=== PATIENT | male | born 1980 | race Caucasian/White ===

== ENCOUNTER 2016-08-30 18:50 | Emergency (ER) | payer OTHER ==
[2016-08-30 18:53] VITALS: BP 134/79; PULSE 95; TEMP 98.1; BMI 29.8
--- NOTE | 2016-08-30 20:41 | PDOC ---
History of Present Illness - General History Source: Patient <Kenton Acosta - Last Filed: 08/31/16 01:22> - General History Source: Patient Exam Limitations: No Limitations - History of Present Illness Initial Comments: 08/30/16 20:52 The patient is a 36 year old male with no significant past medical history who presents to the ED for 4 days of right upper quadrant pain. Patient describes his pain as sharp in nature and 10/10 with decreased appetite. Last meal was earlier today. States he is unable to take a deep breath secondary to the pain. Denies nausea, vomiting, or diarrhea. Patient states he never experienced similar symptoms in the past. The patient denies fever, chills, diaphoresis, cough, SOB, chest pain, and palpitations. Allergies: NKDA Social History: Current smoker (21 pack year hx), etoh abuse, past hx of IV heroin abuse and steroid use Past Surgical History: left inguinal hernia repair (2007), tonsillectomy as child PCP: None reported <Shannan Davis - Last Filed: 08/31/16 01:44> - General Chief Complaint: Nausea/Vomiting Stated Complaint: NAUSEA/VOMITING Time Seen by Provider: 08/30/16 20:37 Past History - Past Medical History Anemia: No Asthma: No Cancer: No Cardiac Disorders: No CVA: No COPD: No CHF: No DVT: No Dementia: No Diabetes: No Dialysis: No GI Disorders: Yes (acid reflux) Disorders: No HTN: No Hypercholesterolemia: No Kidney Stones: No Liver Disease: No Suicide Attempt (Hx): No Seizures: No Thyroid Disease: No - Surgical History Abdominal Surgery: Yes (left inguinal hernia repair 2007) Appendectomy: No Cardiac Surgery: No Cholecystectomy: No Lung Surgery: No Neurologic Surgery: No Orthopedic Surgery: No - Reproductive History Testicular Surgery: No - Immunization History Immunization Up to Date: Yes - Psycho/Social/Smoking Cessation Hx Anxiety: No Suicidal Ideation: No Smoking Status: Yes Smoking History: Current every day smoker Have you smoked in the past 12 months: Yes Number of Cigarettes Smoked Daily: 20 Cigars Per Day: 0 Information on smoking cessation initiated: Yes 'Breaking Loose' booklet given: 08/30/16 Hx Alcohol Use: No Drug/Substance Use Hx: No Substance Use Type: None Hx Substance Use Treatment: No <Kenton Acosta - Last Filed: 08/31/16 01:22> <Shannan Davis - Last Filed: 08/31/16 01:44> - Past Medical History Allergies/Adverse Reactions: Allergies Allergy/AdvReac Type Severity Reaction Status Date / Time No Known Allergies Allergy Verified 08/30/16 18:53 Home Medications: Ambulatory Orders Pantoprazole Sodium [Protonix] 40 mg PO DAILY #30 tablet. 08/31/16 Review of Systems - Review of Systems Able to Perform ROS?: Yes Comments:: 08/30/16 20:52 CONSTITUTIONAL: +decreased appetite Absent: fever, no chills, no fatigue EYES: Absent: visual changes ENT: Absent: ear pain, no sore throat CARDIOVASCULAR: Absent: chest pain, no palpitations RESPIRATORY: Absent: cough, no SOB GI: +right upper quadrant pain Absent: no nausea, no vomiting, no constipation, no diarrhea GENITOURINARY: Absent: dysuria, no frequency, no hematuria MUSCULOSKELETAL: Absent: back pain, no arthralgia, no myalgia SKIN: Absent: rash NEURO: Absent: headache <SusanJuanShannan - Last Filed: 08/31/16 01:44> *Physical Exam - Vital Signs Last Vital Signs Temp Pulse Resp BP Pulse Ox 98.1 F 95 H 18 134/79 97 08/30/16 18:51 08/30/16 18:51 08/30/16 18:51 08/30/16 18:51 08/30/16 18:51 <Kenton Acosta - Last Filed: 08/31/16 01:22> - Vital Signs Last Vital Signs Temp Pulse Resp BP Pulse Ox 98.1 F 95 H 18 134/79 97 08/30/16 18:51 08/30/16 18:51 08/30/16 18:51 08/30/16 18:51 08/30/16 18:51 - Physical Exam Comments: 08/30/16 20:53 GENERAL: Well-appearing, well-nourished. No apparent distress. HEENT: Normocephalic, atraumatic. PERRL, EOM intact. CARDIOVASCULAR: Normal S1, S2. Regular rate and rhythm. PULMONARY: Clear to auscultation bilaterally. ABDOMEN: Soft, non-distended, tenderness in the right upper quadrant. No rebound or guarding. No murphys sign. EXTREMITIES: Normal ROM in all four extremities. No gross deformities. SKIN: Warm, dry. No rash NEUROLOGICAL: No focal neurological deficits. <SusanShannan - Last Filed: 08/31/16 01:44> ED Treatment Course - LABORATORY CBC & Chemistry Diagram: 08/30/16 21:00 08/30/16 21:00 <Kenton Acosta - Last Filed: 08/31/16 01:22> - LABORATORY CBC & Chemistry Diagram: 08/30/16 21:00 08/30/16 21:00 - RADIOLOGY Radiograph Interpretation: 08/31/16 01:43 Exam: Contrast-enhanced CT abdomen and pelvis Reviewed by Imaging saturation diver: Findings: Subsegmental dependent atelectatic changes are noted in the lung bases. The liver, spleen and pancreas all have a normal appearance. The gallbladder is contracted. The adrenal glands are unremarkable. The kidneys have a normal appearance and enhance symmetrically. There is no evidence of urinary tract obstruction. The gastrointestinal tract does not appear obstructed. No thickened or dilated bowel is seen. The appendix is not identified. No cecal thickening or pericecal inflammatory changes are seen. There is no mesenteric infiltration. The urinary bladder, prostate and seminal vesicles are unremarkable. No abdominal or pelvic adenopathy is seen. No lytic or blastic destructive osseous lesions are seen. Impression: No inflammatory process identified in the abdomen or pelvis. No abdominal mass, adenopathy or collection seen. No explanation seen for this patient's abdominal pain. <Shannan Davis - Last Filed: 08/31/16 01:44> Medical Decision Making - Medical Decision Making 08/31/16 01:21 Dr. Acosta: The scribe's documentation has been prepared under my direction and personally reviewed by me in its entirery. I confirm that the note above accurately reflects all work, treatment, procedures, and medical decision making performed by me. All studies return to be negative. Pt to be discharged. Rx Protonix. <Kenton Acosta - Last Filed: 08/31/16 01:22> *DC/Admit/Observation/Transfer - Discharge Dispostion Admit: No <Kenton Acosta - Last Filed: 08/31/16 01:22> - Attestations Scribe Attestion: 08/30/16 20:53 Documentation prepared by Shannan Davis, acting as biomedical analytical scientist for Kenton Acosta MD/. <Shannan Davis - Last Filed: 08/31/16 01:44> Diagnosis at time of Disposition: Abdominal pain Qualifiers: Abdominal location: right upper quadrant Qualified Code(s): R10.11 - Right upper quadrant pain - Discharge Dispostion Disposition: HOME Condition at time of disposition: Stable - Prescriptions Prescriptions: Pantoprazole Sodium [Protonix] 40 mg PO DAILY #30 tablet.dr - Referrals Referrals: Naga Cavazos DO [Staff Physician] - - Patient Instructions Printed Discharge Instructions: DI for Abdominal Pain-Adult - Post Discharge Activity Work/School Note: Back to Work
[2016-08-30] MEDS ORDERED: SODIUM CHLORIDE 1,000 ML IV STA (20:42)
[2016-08-30] MEDS ORDERED: KETOROLAC TROMETHAMINE 30 MG/1 ML VIAL IVPUSH ONE (20:42)
[2016-08-30] MEDS ORDERED: ONDANSETRON 4 MG/2 ML VIAL IVPUSH STA (20:42)
[2016-08-30] MEDS ORDERED: ONDANSETRON 4 MG/2 ML VIAL ONE (21:01)
[2016-08-30] MEDS ORDERED: KETOROLAC TROMETHAMINE 30 MG/1 ML VIAL ONE (21:01)
[2016-08-30 21:04] LABS: BASOPHIL 0.8 % (0-2.0); MCH 29.1 pg (25.7-33.7); MCHC 32.8 g/dl (32.0-35.9); MEAN CELL VOLUME 88.9 fl (80-96); MEAN PLT VOLUME 9.5 fl (7.5-11.1); NEUTROPHILS 55.2 % (42.8-82.8); PLATELET COUNT 165 K/MM3 (134-434); RDW 13.2 % (11.9-15.9); WHITE BLOOD COUNT 8.5 K/mm3 (4.0-10.0)
[2016-08-30 21:21] LABS: INR 1.05 (0.82-1.09); PROTHROMBIN TIME (PATIENT) 11.6 SEC (9.98-11.88)
[2016-08-30 21:30] LABS: ALBUMIN 4.2 g/dl (3.4-5.0); AMYLASE 29 U/L (25-115); ANION GAP 7 (8-16); BILIRUBIN,TOTAL 0.3 mg/dL (0.2-1.0); CALCIUM 9.1 mg/dL (8.5-10.1); CO2 32 mmol/L (21-32); COCKROFT - GAULT 160.1; CREATININE 0.9 mg/dL (0.7-1.3); GLUCOSE,RANDOM 112 mg/dL (74-106); MAGNESIUM 2.1 mg/dL (1.8-2.4); SGOT/AST 26 U/L (15-37); SGPT/ALT 33 U/L (12-78); TOT PROT 7.2 g/dl (6.4-8.2)
[2016-08-30 21:31] LABS: ALK PHOS 45 U/L (45-117); TROPONIN I < 0.02 ng/ml (0.00-0.05)
[2016-08-30] MEDS ORDERED: morphine CARPU-JECT 2 MG/1 ML DISP.SYRIN IVPUSH ONE (21:56)
[2016-08-30] MEDS ORDERED: morphine CARPU-JECT 2 MG/1 ML DISP.SYRIN ONE (22:05)
[2016-08-30] MEDS ORDERED: SODIUM CHLORIDE 1,000 ML IV SCH (22:30)
== END 2016-08-31 03:01 | disposition home or self-care (01) ==
LOC: JER 18:50
PROC: 3E0333Z Introduction of Anti-inflammatory into Peripheral Vein, Percutaneous Approach (ICD-10-PCS; principal; 2016-08-30)
PROC: 3E033NZ Introduction of Analgesics, Hypnotics, Sedatives into Peripheral Vein, Percutaneous Approach (ICD-10-PCS; 2016-08-30)
PROC: 3E033GC Introduction of Other Therapeutic Substance into Peripheral Vein, Percutaneous Approach (ICD-10-PCS; 2016-08-30)
PROC: 3E0337Z Introduction of Electrolytic and Water Balance Substance into Peripheral Vein, Percutaneous Approach (ICD-10-PCS; 2016-08-30)
DX: R10.11 Right upper quadrant pain (principal); F17.210 Nicotine dependence, cigarettes, uncomplicated; K21.9 Gastro-esophageal reflux disease without esophagitis
CPT/HCPCS: 36415; 74177-TC; 76705-TC; 80053; 82150; 82550; 82553; 83690; 83735; 84484; 85025; 85610; 96361; 96374; 96375; 99282-25

== ENCOUNTER 2018-04-13 19:00 | Emergency (ER) | payer OTHER ==
[2018-04-13 19:07] VITALS: BP 124/79; PULSE 98; TEMP 98.6; BMI 31.8
--- NOTE | 2018-04-13 21:02 | PDOC ---
History of Present Illness - General Chief Complaint: Edema Stated Complaint: SWOLLEN RT ARM Time Seen by Provider: 04/13/18 20:29 History Source: Patient Exam Limitations: No Limitations - History of Present Illness Initial Comments: 04/13/18 23:11 Pt is a 38 y/o M with PMH of IVDU, last used approximately 10 days ago, shot cocaine, presents to the ED with R arm pain and swelling. Pt notes that his R arm was starting to turn red around his last injection site. States that it hurts to flex his arm at the elbow. Pt was seen at an urgent care where he was given Keflex. Pt states he has taken 6 doses of Keflex and he states that he thinks the redness has gotten worse. Denies fevers, chills, weakness to the extremity, numbness and tingling to the extremity, nausea, vomiting. Past History - Travel Traveled outside of the country in the last 30 days: No Close contact w/someone who was outside of country & ill: No - Past Medical History Allergies/Adverse Reactions: Allergies Allergy/AdvReac Type Severity Reaction Status Date / Time No Known Allergies Allergy Verified 04/13/18 19:04 Home Medications: Ambulatory Orders Clindamycin [Cleocin -] 600 mg PO TID #42 capsule 04/13/18 Midazolam 04/13/18 Anemia: No Asthma: No Cancer: No Cardiac Disorders: No CVA: No COPD: No CHF: No DVT: No Dementia: No Diabetes: No Dialysis: No GI Disorders: Yes (acid reflux) Disorders: No HTN: No Hypercholesterolemia: No Kidney Stones: No Liver Disease: No Seizures: No Thyroid Disease: No - Surgical History Abdominal Surgery: Yes (left inguinal hernia repair 2007) Appendectomy: No Cardiac Surgery: No Cholecystectomy: No Lung Surgery: No Neurologic Surgery: No Orthopedic Surgery: No - Reproductive History Testicular Surgery: No - Immunization History Immunization Up to Date: Yes - Suicide/Smoking/Psychosocial Hx Smoking Status: Yes Smoking History: Current every day smoker Have you smoked in the past 12 months: Yes Number of Cigarettes Smoked Daily: 10 Cigars Per Day: 0 Information on smoking cessation initiated: No 'Breaking Loose' booklet given: 08/30/16 Hx Alcohol Use: No Drug/Substance Use Hx: Yes (COCAINE) Substance Use Type: None Hx Substance Use Treatment: No Review of Systems - Review of Systems Able to Perform ROS?: Yes Comments:: 04/13/18 22:16 CONSTITUTIONAL: Absent: fever, chills, diaphoresis, generalized weakness, malaise, loss of appetite HEENT: Absent: rhinorrhea, nasal congestion, throat pain, throat swelling, difficulty swallowing, mouth swelling, ear pain, eye pain, visual Changes CARDIOVASCULAR: Absent: chest pain, loss of consciousness, palpitations, irregular heart rate, peripheral edema RESPIRATORY: Absent: cough, shortness of breath, dyspnea with exertion, orthopnea, wheezing, stridor, hemoptysis GASTROINTESTINAL: Absent: abdominal pain, abdominal distension, nausea, vomiting, diarrhea, constipation, melena, hematochezia GENITOURINARY: Absent: dysuria, frequency, urgency, hesitancy, hematuria, flank pain, genital pain MUSCULOSKELETAL: Absent: myalgia, arthralgia, joint swelling SKIN: Present: Redness to R forearm with pain Absent: itching, pallor HEMATOLOGIC/IMMUNOLOGIC: Absent: easy bleeding, easy bruising, lymphadenopathy, frequent infections ENDOCRINE: Absent: unexplained weight gain, unexplained weight loss, heat intolerance, cold intolerance NEUROLOGIC: Absent: headache, focal weakness or paresthesias, dizziness, unsteady gait, seizure, mental status changes, bladder or bowel incontinence PSYCHIATRIC: Absent: anxiety, depression, suicidal or homicidal ideation, hallucinations. Is the patient limited [place] proficient: No *Physical Exam - Vital Signs Last Vital Signs Temp Pulse Resp BP Pulse Ox 98.6 F 98 H 18 124/79 97 04/13/18 19:05 04/13/18 19:05 04/13/18 19:05 04/13/18 19:05 04/13/18 19:05 - Physical Exam Comments: 04/13/18 22:16 GENERAL: Well developed, well nourished. Awake and alert. No acute distress. HEENT: Normocephalic, atraumatic. PERRLA, EOMI. No conjunctival pallor. Sclera are non- icteric. Moist mucous membranes. Oropharynx is clear. NECK: Supple. Full ROM. No JVD. Carotid pulses 2+ and symmetric, without bruits. No thyromegaly. No lymphadenopathy. CARDIOVASCULAR: Regular rate and rhythm. No murmurs, rubs, or gallops. Distal pulses are 2+ and symmetric. PULMONARY: No evidence of respiratory distress. Lungs clear to auscultation bilaterally. No wheezing, rales or rhonchi. ABDOMINAL: Soft. Non-tender. Non-distended. No rebound or guarding. No organomegaly. Normoactive bowel sounds. MUSCULOSKELETAL Decreased ROM of the R arm at the elbow b/l cellultis. Normal range of motion at all joints. No bony deformities or tenderness. No CVA tenderness. EXTREMITIES: No cyanosis. No clubbing. No edema. No calf tenderness. SKIN: Cellulitic, red warm patch extending from proximal forearm to distal humerus involving the elbow. Area of 2cm area induration at the R AC . Warm and dry. Normal capillary refill. No rashes. No jaundice. NEUROLOGICAL: Alert, awake, appropriate. Cranial nerves 2-12 intact. No deficits to light touch and temperature in face, upper extremities and lower extremities. No motor deficits in the in face, upper extremities and lower extremities. Normoreflexic in the upper and lower extremities. Normal speech. Toes are down- going bilaterally. Gait is normal without ataxia. PSYCHIATRIC: Cooperative. Good eye contact. Appropriate mood and affect. Moderate Sedation - Procedure Monitoring Vital Signs: Procedure Monitoring Vital Signs Temperature 98.6 F 04/13/18 19:05 Pulse Rate 98 H 04/13/18 19:05 Respiratory Rate 18 04/13/18 19:05 Blood Pressure 124/79 04/13/18 19:05 O2 Sat by Pulse Oximetry (%) 97 04/13/18 19:05 Medical Decision Making - Medical Decision Making 04/13/18 22:16 The patient is clinically sober, free from distracting injury, appears to have intact insight and judgment and reason and in my opinion has the capacity to make decisions. The patient presents with worsening cellulitis to the R forearm despite outpatient antibiotic treatment. I have explained that I am concerned that this may represent a worsening infection, requiring IV antibotics; they have verbalized an understanding of my concerns. I have discussed the need for lab work and IV antibiotics to get more information about potential causes of the patients infection. I have told the patient that if they leave and have cellulitis or necrotizing facititis, they could get much worse, could become critically ill, and could possibly become disabled or . I have offered to give the patient more pain medication. I have asked them to stay in the hospital for IV abx and follow up. I have discussed these concerns with the patient and I am unable to convince them to stay for further evaluation. Patient states he must leave to get to work. The patient is not willing to undergo blood tests or stay for IV antibiotics. He is unwilling to stay overnight for monitoring. He is refusing any further care and is leaving against medical advice. I am unable to convince the patient to stay, I have asked them to return as soon as possible to complete their evaluation. I have answered all their questions *DC/Admit/Observation/Transfer Diagnosis at time of Disposition: Cellulitis Qualifiers: Site of cellulitis: extremity Site of cellulitis of extremity: upper extremity Laterality: right Qualified Code(s): L03.113 - Cellulitis of right upper limb - Discharge Dispostion Disposition: AGAINST MEDICAL ADVICE Condition at time of disposition: Guarded Decision to Admit order: No - Prescriptions Prescriptions: Clindamycin [Cleocin -] 600 mg PO TID #42 capsule - Referrals - Patient Instructions Printed Discharge Instructions: DI for Cellulitis -- Adult Additional Instructions: You have cellulitis that has failed one outpatient antibiotic (Keflex) It was advised that you stay in the hospital for admission. You are leaving against medical advice Because you are leaving now you are at risk for worsening infection, potential loss of limb, sepsis, and . Stop the Keflex and start taking the Clindamycin that was prescribed Take this medicine with food If the redness is spreading after 4 doses of Clindamycin, if you develop worsening pain or fever, you need to return to the ED for IV antibiotics. - Post Discharge Activity
[2018-04-13] MEDS ORDERED: CLINDAMYCIN 600MG PREMIX IVPB 600 MG/50 ML BAG IVPB ONE ×2 (21:03→21:46)
--- NOTE | 2018-04-13 21:07 | PDOC ---
*Physical Exam - Vital Signs Last Vital Signs Temp Pulse Resp BP Pulse Ox 98.6 F 98 H 18 124/79 97 04/13/18 19:05 04/13/18 19:05 04/13/18 19:05 04/13/18 19:05 04/13/18 19:05 Medical Decision Making - Medical Decision Making 04/13/18 21:07 38 yo M RHD presents for evaluation of right arm erythema s/p IVDU Was started on Keflex 2 days ago Pt states that although his arm has not improved, it has not worsened No fevers Pt is unable to extend his arm Pt refusing to stay in the hospital at this time Will do: Labs Xray Pt seen by Midlevel Provider under my direct supervision Pt interviewed and examined Ancillary studies reviewed I agree with plan as outlined by Midlevel Provider 04/13/18 22:00 Xray demonstrates no free air in the tissues Pt is refusing to stay for a dose of IV abx Will be leaving AMA Will start Clindamycin Pt asked to start a probiotic as well *DC/Admit/Observation/Transfer - Prescriptions Prescriptions: Clindamycin [Cleocin -] 600 mg PO TID #42 capsule - Referrals - Patient Instructions - Post Discharge Activity
[2018-04-13] MEDS ORDERED: IBUPROFEN 400 MG TABLET (FP) PO ONE ×2 (21:45→22:14)
[2018-04-13] MEDS ORDERED: CLINDAMYCIN HCL 300 MG CAPSULE PO ONE (21:52)
[2018-04-13] MEDS ORDERED: CLINDAMYCIN HCL 150 MG CAPSULE (FP) ONE (22:14)
== END 2018-04-13 23:55 | disposition left against medical advice (07) ==
LOC: JER 19:00 → JERFT 19:00 → JER 23:55
DX: L03.113 Cellulitis of right upper limb (principal)
CPT/HCPCS: 73060-TC-RT-FY; 73070-TC-RT-FY; 96365; 99282-25